=== PATIENT | female | born 1950 | race Caucasian/White ===

== ENCOUNTER 2023-12-12 10:59 | Outpatient (AMB) | payer MEDICARE, SELFPAY ==
[2023-12-12 11:04] VITALS: BP 150/90; PULSE 97; TEMP 36.5; O2SAT 99; BMI 31.9
--- NOTE | 2023-12-12 11:04 | MHC.OFFWIV ---
Intake Vital Signs 12/12/23 11:04 Height 5 ft 8 in Weight 210 lb BMI 31.9 BP 150/90 H Blood Pressure Location Lt brachial Position Sitting Pulse 97 Pulse Source Pulse Oximeter Temp 97.7 F Temp Source Temporal Artery Scan Pulse Oximetry (%) 99 Oxygen Delivery Method Room Air Intake Visit Reasons: Right side painful to swallow (lobby) Intake Note: pt is here today for rt side painful to swallow started 3 days ago Patient Tobacco Use Status: Never used Tobacco Allergies No Known Allergies Allergy (Verified 12/12/23 11:15) Do you need a note to return to daycare/school/sports/work: Yes HPI HPI Comments History of Present Illness Details This is a 73-year-old female who presented to the office complaining of right-sided sore throat, odynophagia, and otalgia. She states her symptoms started approximately 3 days ago. She denies any fevers or chills. She denies any throat swelling or trouble swallowing. She is otherwise feeling well. [facility] Social History Patient Tobacco Use Status: Never used Tobacco Review of Systems Const All systems reviewed & are unremarkable except as noted in HPI and below Reports no additional complaints Eyes Reports no additional complaints ENT Reports no additional complaints Card Reports no additional complaints Resp Reports no additional complaints GI Reports no additional complaints Reports no additional complaints Musc Reports no additional complaints Skin/Breast Reports system reviewed and no additional complaints, except as documented Neuro Reports no additional complaints Psych Reports no additional complaints Endo Reports no additional complaints Alec/Lymph Reports no additional complaints Aller/Immun Reports no additional complaints Physical Exam Vital Signs: Last Vital Signs Temp 97.7 F 12/12/23 11:04 Pulse 97 12/12/23 11:04 BP 150/90 H 12/12/23 11:04 Pulse Ox 99 12/12/23 11:04 Oxygen Delivery Method Room Air 12/12/23 11:04 BMI result Body Mass Index 31.9 Const Other: Vital signs reviewed. Constitutional: Non-toxic appearing. No acute distress. Well-developed and well-nourished. HEENT: Normocephalic and atraumatic. Tympanic membranes without erythema, edema, or bulging bilaterally. External auditory canals without erythema or edema bilaterally. Moist mucous membranes. There is mild right-sided posterior pharyngeal erythema but no white exudates, peritonsillar abscess, peritonsillar swelling, or peritonsillar cellulitis. Skin: Warm and dry. No rashes or lesions noted. Neck: Full and painless range of motion. No cervical lymphadenopathy. Cardio: Regular rate and rhythm. No murmurs, gallops, or rubs. No lower extremity edema. No JVD. Pulmonary: No respiratory distress. No accessory muscle usage. Gastrointestinal: Soft, nontender, and nondistended in all 4 quadrants. Musculoskeletal: Normal range of motion in joints throughout the body. No deformity or other signs of injury. Neuro: Alert and oriented x4. Cranial nerves 2-12 grossly intact. No focal deficits appreciated. Psych: Normal mood and affect. Assessment & Plan Assessment & Plan (1) Acute viral pharyngitis: Code(s): J02.9 - Acute pharyngitis, unspecified Plan This is a 73-year-old female presenting to the office complaining of a sore throat. On physical examination, patient has mild right-sided posterior pharyngeal erythema without exudates or cervical lymphadenopathy. History and physical most consistent with acute pharyngitis, likely viral. Rapid strep test is negative. No evidence of peritonsillar mass/abscess, peritonsillar cellulitis, or, unilateral neck swelling. Patient's vital signs are stable, physical exam is otherwise benign, and patient is overall nontoxic appearing. Recommended symptomatic management including rest, increased fluids, advil/tylenol for pain/fever, salt water gargles, and over the counter benzocaine/menthol throat lozenges. Patient advised to follow up here or go to the emergency room for worsening/persistent symptoms. Patient verbalizes understanding and is in agreement the plan. Coding Level of Care Code New Pt Level 3 (09239) Diagnoses Acute viral pharyngitis J02.9
== END 2023-12-12 16:12 | disposition home or self-care (01) ==
PROVIDERS: PCP Internal Medicine; Visit Provider Physician Assistant Medical
DX: J02.9 Acute pharyngitis, unspecified (principal)
CPT/HCPCS: 87880; 99203

== ENCOUNTER 2024-04-30 08:00 | Outpatient (AMB) | payer MEDICARE, SELFPAY ==
[2024-04-30 08:06] VITALS: BP 142/88; PULSE 95; O2SAT 98; BMI 32.4
--- NOTE | 2024-04-30 08:06 | MHC.OFFWIV ---
Intake Vital Signs 04/30/24 08:06 Height 5 ft 8 in Weight 213 lb BMI 32.4 BP 142/88 H Blood Pressure Location Lt brachial Position Sitting Pulse 95 Pulse Source Pulse Oximeter Pulse Oximetry (%) 98 Oxygen Delivery Method Room Air Intake Visit Reasons: EP- RT ear blocked Intake Note: Pt presents to the office today for c/o right ear being blocked. Pt states she was in her garden a few days ago and isn't sure if something flew in her ear. Patient Tobacco Use Status: Never used Tobacco Allergies No Known Allergies Allergy (Verified 04/30/24 08:10) Medication List - Last Reconciled 04/30/24 by Kimberly Sepulveda MD amlodipine 5 mg PO DAILY atorvastatin 20 mg PO DAILY blood sugar diagnostic ([employer] Ultra Test strips) As directed cyanocobalamin (vitamin B-12) (Vitamin B-12) 500 mcg PO DAILY lancets ([employer] Delica Plus Lancet) As directed metformin 1,000 mg PO BID HPI EP- RT ear blocked HPI Details Patient is 74-year-old female came in today to be evaluated for possible foreign body in her right ear Patient says that she was working in her garden and she felt something in her ears so she put her finger in She was having slight discomfort yesterday but today she is feeling fine She just had ENT appointment with [facility] Re[facility] Patient would like this note sent over And also to her primary care doctor which we will. Ear exam is entirely normal, light reflex is intact There is no redness no erythema there is no pain with tricuspid pressure There is no fever no chills there is no shortness a breath no chest pain no sore throat no headache. Patient was provided reassurance If she feels any discomfort she may take Advil or Tylenol whichever agree with her [facility] Social History Patient Tobacco Use Status: Never used Tobacco Review of Systems Const Denies chills and Denies fever(s) ENT Denies epistaxis and Denies nasal discharge Card Denies chest pain Resp Denies chest congestion, Denies cough and Denies hemoptysis GI Denies diarrhea and Denies nausea Skin/Breast Denies rash Neuro Reports no additional complaints Psych Reports no additional complaints Endo Reports no additional complaints Physical Exam Vital Signs: Last Vital Signs Pulse 95 04/30/24 08:06 BP 142/88 H 04/30/24 08:06 Pulse Ox 98 04/30/24 08:06 Oxygen Delivery Method Room Air 04/30/24 08:06 BMI result Body Mass Index 32.4 Const General: cooperative, comfortable and no acute distress Orientation/consciousness: patient oriented x3 HEENT Other: Both ears within normal limit, light reflex intact no erythema no pain no wax, no pain with tragus pressure Head: Yes normocephalic Eyes General: appearance normal, both eyes and all related structures Neck Other: Supple Neck: Yes supple Resp Effort & Inspection: normal respiratory effort, no cough and no stridor Cardio Rhythm: regular rhythm Heart sounds: S1 normal heart sound present and S2 normal heart sound present Skin General skin exam: turgor normal Neuro Other: Motor sensory intact General: patient oriented x3, tone normal and moves all extremities Extrem Other: No lower extremity swelling. Right lower extremity: no edema Left lower extremity: no edema Psych Other: Normal effect, speech clear Assessment & Plan Assessment & Plan (1) Sensation of fullness in right ear: Code(s): H93.8X1 - Other specified disorders of right ear Plan Patient is 74-year-old female came in today to be evaluated for possible foreign body in her right ear Patient says that she was working in her garden and she felt something in her ears so she put her finger in She was having slight discomfort yesterday but today she is feeling fine She just had ENT appointment with her ears specialist [facility] Reyes Patient would like this note sent over And also to her primary care doctor which we will. Ear exam is entirely normal, light reflex is intact There is no redness no erythema there is no pain with tragus pressure There is no fever no chills there is no shortness a breath no chest pain no sore throat no headache. Patient was provided reassurance If she feels any discomfort she may take Advil or Tylenol whichever agree with her Coding Level of Care Code Est Pt Level 3 (22917) Diagnoses Sensation of fullness in right ear H93.8X1
--- NOTE | 2024-04-30 08:06 | MHC.OFFWIV ---
Intake Vital Signs 04/30/24 08:06 Weight 213 lb Intake Visit Reasons: EP- RT ear blocked Patient Tobacco Use Status: Never used Tobacco Allergies No Known Allergies Allergy (Verified 12/12/23 11:15) PFSH Social History Patient Tobacco Use Status: Never used Tobacco Coding
== END 2024-04-30 08:44 | disposition home or self-care (01) ==
PROVIDERS: PCP Internal Medicine; Visit Provider Internal Medicine
DX: H93.8X1 Other specified disorders of right ear (principal)
CPT/HCPCS: 99213

== ENCOUNTER 2025-06-22 11:39 | Outpatient (AMB) | payer MEDICARE, SELFPAY ==
--- NOTE | 2025-06-22 12:02 | MHC.OFFWIV ---
Intake Vital Signs 06/22/25 12:19 Height 5 ft 7 in Weight 208 lb BMI 32.6 BP 140/70 H Blood Pressure Location Lt brachial Position Sitting Pulse 94 Pulse Source Pulse Oximeter Temp 98.2 F Temp Source Oral Pulse Oximetry (%) 99 Oxygen Delivery Method Room Air Intake Visit Reasons: EP-rt hand [id number] Intake Note: The EP complains of her right hand pinky finger numbness since last week. Patient Tobacco Use Status: Never used Tobacco Allergies No Known Allergies Allergy (Verified 06/22/25 12:10) Medication List - Last Reconciled 06/22/25 by Taisha Rai PA-C amlodipine 5 mg PO DAILY atorvastatin 20 mg PO DAILY blood sugar diagnostic ([employer] Ultra Test strips) As directed cholecalciferol (vitamin D3) 25 mcg PO DAILY cyanocobalamin (vitamin B-12) (Vitamin B-12) 500 mcg PO DAILY docusate sodium (Colace) 100 mg PO DAILY lancets ([employer] Delica Plus Lancet) As directed metformin 1,000 mg PO BID Do you need a note to return to daycare/school/sports/work: No HPI HPI Comments History of Present Illness Details History of Present Illness - The patient is a 75-year-old female presenting with numbness in the right pinky finger which starts at the base of her right hand. - The numbness was noticed a couple of days after washing carrots in a deep sink basin, which required leaning on her forearm and wrist. - The patient reports being able to move the finger with maintained strength, but the numbness persists. - There is a concern about the numbness leading to more severe symptoms, such as discoloration. - The patient has a history of carpal tunnel syndrome diagnosed five years ago. - No anti-inflammatory medications were taken initially - The patient reports she experiences white coat hypertension, with blood pressure readings being higher in clinical settings. She does not measure her BP at home. - The patient is on medication for hypertension and reports compliance to her amlodipine. Review of Systems - Neurological: Reports numbness in the pinky finger. Denies weakness or loss of strength in the finger. - Cardiovascular: Reports elevated blood pressure in clinical settings. All systems reviewed and are unremarkable except as noted in HPI Physical Exam General: Cooperative, healthy appearing, comfortable, no acute distress and well developed Orientation: Patient oriented x3 Limitations: No limitations Head: Normal to inspection Ears: Hearing grossly normal bilaterally Nose: Normal External nose present Face and sinus: Normal facial exam Eyes: Appearance normal, both eyes and all related structures Neck: Normal visual inspection and Yes full ROM Respiratory: Normal respiratory effort and able to speak in complete sentences. 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 - Advise the use of Motrin 600 mg every six hours for anti-inflammatory effect. - Recommend wearing a wrist brace at night to alleviate symptoms. - Suggest icing the affected area to reduce inflammation. - Plan to follow up with primary care physician if symptoms do not improve over the weekend as she already has an appt in place. (2) White coat syndrome with hypertension: Code(s): I10 - Essential (primary) hypertension Plan: White Coat Hypertension - Repeat BP at the end of her visit was 140/70, initial BP was 180/100. - Encourage monitoring blood pressure at home to differentiate between true hypertension and white coat syndrome. - Suggest purchasing a home blood pressure cuff for regular monitoring. Coding Level of Care Code New Pt Level 4 (62379) Diagnoses Entrapment of right ulnar nerve at wrist G56.21 Laterality: right White coat syndrome with hypertension I10
[2025-06-22 12:19] VITALS: BP 140/70; PULSE 94; TEMP 36.8; O2SAT 99; BMI 32.6
== END 2025-06-22 12:48 | disposition home or self-care (01) ==
PROVIDERS: PCP Internal Medicine; Visit Provider Physician Assistant
DX: G56.21 Lesion of ulnar nerve, right upper limb (principal); I10 Essential (primary) hypertension

== ENCOUNTER → 2025-06-22 11:39 | Outpatient (BNVA) | payer MEDICARE, SELFPAY | PROVIDERS: PCP Internal Medicine; Visit Provider Physician Assistant | DX: G56.21 Lesion of ulnar nerve, right upper limb (principal); I10 Essential (primary) hypertension | CPT/HCPCS: 99202 ==